=== PATIENT | female | born 1945 | race Caucasian/White ===

== ENCOUNTER 2020-10-12 13:35 | Emergency (ER) | payer OTHER, BC ==
[2020-10-12 13:41] VITALS: BP 148/54; PULSE 65; TEMP 97.5; BMI 25.7
== END 2020-10-12 15:33 | disposition home or self-care (01) ==
LOC: JERFT 13:35
DX: S96.912A Strain of unspecified muscle and tendon at ankle and foot level, left foot, initial encounter (principal); Y99.8 Other external cause status
CPT/HCPCS: 73610-TC-LT-FY; 73630-TC-LT; 99283-25

== ENCOUNTER 2023-05-20 11:01 | Emergency (ER) | payer OTHER, BC ==
[2023-05-20 11:30] VITALS: TEMP 96.8; BMI 24.4
[2023-05-20] MEDS ORDERED: ACETAMINOPHEN INJECTION 100 ML IVPB ONE (11:53)
[2023-05-20] MEDS: ACETAMINOPHEN 1000 MG/100 ML BAG IVPB ONE (12:12)
[2023-05-20] MEDS: SODIUM CHLORIDE 0.9% 500 ML INFUS.BAG IV ONE (12:12)
[2023-05-20 12:16] LABS: BASO % 1.2 % (0-2.0); EOS % 3.1 % (0-4.5); HEMATOCRIT 40.4 % (32.4-45.2); HEMOGLOBIN 13.5 GM/dL (10.7-15.3); LYMPH % 26.7 % (8-40); MCH 29.8 pg (25.7-33.7); MCHC 33.3 g/dl (32.0-36.0); MEAN CELL VOLUME 89.5 fl (80-96); MEAN PLT VOLUME 7.5 fl (7.5-11.1); MONO % 9.4 % (3.8-10.2); NEUT % 59.6 % (42.8-82.8); PLATELET COUNT 314 10^3/uL (134-434); RBC 4.52 M/mm3 (3.60-5.2); RDW 14.7 % (11.6-15.6); WHITE BLOOD COUNT 6.3 K/mm3 (4.0-10.0)
[2023-05-20 12:24] LABS: INR 0.98 (0.83-1.09); PROTHROMBIN TIME (PATIENT) 11.4 SEC (9.7-13.0)
[2023-05-20 12:26] LABS: ACTIVATED PTT 28.7 SECONDS (25.2-36.5)
[2023-05-20 12:40] LABS: ALBUMIN 3.1 g/dl (3.4-5.0); BLOOD UREA NITROGEN 19.5 mg/dL (7-18); CALCIUM 8.9 mg/dL (8.5-10.1)
[2023-05-20 12:43] LABS: CREATININE 0.8 mg/dL (0.55-1.3)
[2023-05-20 12:44] LABS: BILIRUBIN,TOTAL 0.2 mg/dL (0.2-1); TOT PROT 7.1 g/dl (6.4-8.2)
[2023-05-20 15:08] LABS: URINE APPEARANCE CLEAR; URINE BILIRUBIN NEGATIVE (NEGATIVE); URINE COLOR YELLOW; URINE GLUCOSE (UA) NEGATIVE (NEGATIVE); URINE KETONE NEGATIVE (NEGATIVE); URINE LEUK ESTERASE NEGATIVE (NEGATIVE); URINE NITRITE NEGATIVE (NEGATIVE); URINE PROTEIN NEGATIVE (NEGATIVE); URINE UROBILINOGEN 0.2 mg/dL (0.2-1.0)
[2023-05-20 16:53] VITALS: BP 185/88; PULSE 62; RESP 18
== END 2023-05-20 16:53 | disposition home or self-care (01) ==
LOC: JER 11:01
DX: R10.814 Left lower quadrant abdominal tenderness (principal); R14.0 Abdominal distension (gaseous); K57.32 Diverticulitis of large intestine without perforation or abscess without bleeding
CPT/HCPCS: 36415; 74177-TC; 80053; 81003; 83605; 83690; 84484; 85025; 85610; 85730; 86850; 86900; 86901; 87086; 93005; 93010; 99285-25; Q9967

== ENCOUNTER 2024-05-16 15:08 | Observation (INO) | payer OTHER, BC ==
[2024-05-16 15:33] VITALS: BMI 23.3
[2024-05-16] MEDS ORDERED: ACETAMINOPHEN 325 MG TABLET (FP) ONE (16:05)
[2024-05-16] MEDS: ACETAMINOPHEN 500 MG TABLET (FP) PO ONE (16:07)
[2024-05-16 16:31] LABS: HEMATOCRIT 41.6 % (34.1-44.9); HEMOGLOBIN 13.3 g/dL (11.2-15.7); MEAN CELL VOLUME 92.9 fl (79.4-94.8); MEAN PLT VOLUME 9.1 fl (9.4-12.3); PLATELET COUNT 254 x10^3/uL (182-369); RDW 14.1 % (12.4-16.6)
[2024-05-16 16:38] LABS: INR 1.02 (0.83-1.09); PROTHROMBIN TIME (PATIENT) 11.1 SEC (9.7-13.0)
[2024-05-16 16:41] LABS: ACTIVATED PTT 26.5 SECONDS (25.2-36.5)
[2024-05-16 16:51] LABS: POTASSIUM 3.7 mmol/L (3.5-5.1)
[2024-05-16 16:55] LABS: BLOOD UREA NITROGEN 16.9 mg/dL (7-18); CALCIUM 8.9 mg/dL (8.5-10.1)
[2024-05-16 16:56] LABS: ALBUMIN 3.5 g/dl (3.4-5.0)
[2024-05-16 16:59] LABS: BILIRUBIN,TOTAL 0.6 mg/dL (0.2-1); CREATININE 0.8 mg/dL (0.55-1.3); TOT PROT 7.1 g/dl (6.4-8.2)
[2024-05-16] MEDS: MAGNESIUM CITRATE 300 ML BOTTLE PO ONE (21:45)
[2024-05-16] MEDS: POLYETHYLENE GLYCOL (HEALTHYLAX) 3350 17 GM PACKET PO SCH (23:04)
[2024-05-16] MEDS: ACETAMINOPHEN 325 MG TABLET (FP) PO PRN (23:04)
[2024-05-17 02:07] VITALS: RESP 18
[2024-05-17 08:01] LABS: HEMATOCRIT 38.4 % (34.1-44.9); HEMOGLOBIN 12.1 g/dL (11.2-15.7); MCHC 31.5 g/dl (32.2-35.5); MEAN CELL VOLUME 92.5 fl (79.4-94.8); MEAN PLT VOLUME 9.4 fl (9.4-12.3); PLATELET COUNT 249 x10^3/uL (182-369); RDW 14.2 % (12.4-16.6)
[2024-05-17 15:38] VITALS: BP 148/70; PULSE 65; TEMP 97.4
== END 2024-05-17 17:04 | disposition home or self-care (01) ==
LOC: JER 15:08 → JERBED 19:42 → J4W 22:48
PROVIDERS: ADMIT Internal Medicine; ATTEND Internal Medicine
DX: R55 Syncope and collapse (principal); M25.572 Pain in left ankle and joints of left foot; E78.5 Hyperlipidemia, unspecified; R42 Dizziness and giddiness; E03.9 Hypothyroidism, unspecified; W18.39XA Other fall on same level, initial encounter; Y93.89 Activity, other specified; Y92.008 Other place in unspecified non-institutional (private) residence as the place of occurrence of the external cause
CPT/HCPCS: 36415; 73610-TC-LT-FY; 73630-TC-LT; 80053; 84436; 84439; 84443; 84484; 85027; 85610; 85730; 93005; 93010; 97116-GP; 97162-GP; 99285-25; G0378